=== PATIENT | male | born 1950 | race Caucasian/White ===

== ENCOUNTER → 2019-04-28 12:25 | Outpatient (CLI) | payer BC | END | disposition home or self-care (01) | LOC: D.US 12:25 | PROVIDERS: ATTEND Family Medicine | DX: I70.203 Unspecified atherosclerosis of native arteries of extremities, bilateral legs (principal); I73.9 Peripheral vascular disease, unspecified ==

== ENCOUNTER → 2019-05-04 10:15 | Outpatient (CLI) | payer BC | END | disposition home or self-care (01) | LOC: D.CT 10:15 | PROVIDERS: ATTEND Family Medicine | DX: I70.209 Unspecified atherosclerosis of native arteries of extremities, unspecified extremity (principal) ==